=== PATIENT | female | born 1960 | race Asian ===

== ENCOUNTER 2017-04-09 11:01 | Emergency (ER) | payer BC, OTHER ==
[~2017-04-09] VITALS: Ht 160 cm; Wt 13.6 kg
[2017-04-09 11:01] VITALS: BP_SYST 159
[~2017-04-09 11:01] MED LIST: MOM; TYLENOL
[2017-04-09 11:31] LABS: BILIRUBIN,URINE NEGATIVE (NEGATIVE); CLARITY/URINE CLEAR (CLEAR); COLOR,URINE YELLOW (YELLOW); GLUCOSE,URINE NEGATIVE (NEGATIVE); KETONES,URINE TRACE (NEGATIVE); LEUKOCYTE ESTERASE ,URINE NEGATIVE (NEGATIVE); NITRITE, URINE NEGATIVE (NEGATIVE); PROTEIN URINE NEGATIVE (NEGATIVE); UROBILINOGEN,URINE 0.2 (0.2-1.0)
[2017-04-09 11:33] LABS: BLOOD, URINE TRACE (NEGATIVE)
[2017-04-09 11:55] LABS: BACTERIA,URINE FEW /HPF (None Seen); MUCUS,URINE 1+ /LPF (None Seen); WBC,URINE 0-3 /HPF (0-3)
[2017-04-09] MEDS ORDERED: IBUPROFEN 800 MG TABLET PO ONE (12:00)
[2017-04-09 12:25] VITALS: BP_SYST 140
== END 2017-04-09 12:25 | disposition home or self-care (01) ==
LOC: SED 11:01
DX: B34.9 Viral infection, unspecified (principal); M54.30 Sciatica, unspecified side
CPT/HCPCS: 36415; 81000-TC; 86710; 99284